=== PATIENT | male | born 1970 | race Two or more races ===

== ENCOUNTER 2018-03-02 22:29 | Emergency (ER) | payer SELFPAY ==
[~2018-03-02] VITALS: Ht 180.3 cm; Wt 99.8 kg
[2018-03-02 22:26] VITALS: BP 108/66
[~2018-03-02 22:29] MED LIST: DEPAKOTE250 MG PO
--- NOTE | 2018-03-02 22:37 | Emergency Room Report ---
History of Present Illness General Chief Complaint: Alcohol Intoxication Source: Patient, EMS Present Illness HPI Concerned bystanders called paramedics. The patient was in the gutter. He's been drinking alcohol. No seizure activity, head trauma. History of alcohol abuse. He's unable to ambulate. Paramedics transported him to us here. The patient's refusing to answer questions. The patient's been seen here in the past. Allergies: Coded Allergies: No Known Allergies (Unverified , 06/27/14) Patient History Limited by: medical condition Past Medical History: see triage record, old chart reviewed Social History: Reports: alcohol use Social History Narrative on streets Reviewed Nursing Documentation: PMH: Agreed; PSxH: Agreed Review of Systems All Other Systems: limited Physical Exam Vital Signs Date Time Temp Pulse Resp B/P (MAP) Pulse Ox O2 Delivery O2 Flow Rate FiO2 03/02/18 22:08 98.2 90 18 108/66 97 Room Air Sp02 EP Interpretation: reviewed, normal General Appearance: alert - slurred words, other - dishevelled Head: normocephalic, atraumatic Eyes: bilateral eye PERRL, bilateral eye Scleral Injection ENT: moist mucus membranes - poor dentition Neck: supple, no bony tend Respiratory: chest non-tender, lungs clear, normal breath sounds, rhonchi Cardiovascular #1: regular rate, rhythm Cardiovascular #2: 2+ radial (L) Gastrointestinal: non tender, soft, decreased bowel sounds Musculoskeletal: back normal, normal range of motion Neurologic: other - lethargic, nystagmus Psychiatric: other - argumentative or sleeping Skin: other - dishevelled Medical Decision Making Diagnostic Impression: Primary Impression: Acute alcoholic intoxication Qualified Codes: F10.929 - Alcohol use, unspecified with intoxication, unspecified Additional Impression: Poor impulse control ER Course Patient presents with inability to walk after drinking alcohol. Differential includes acute intoxication, other drug ingestion, occult infection amongst others. He has rhonchi at this time and a chest x-ray will be obtained. The patient be observed and reevaluated when he becomes more sober. If he still has difficulty walking at that time further workup will be undertaken. There is no evidence of any head trauma and is good strength in all extremities but he lacks coordination and is ataxic. CXR no infiltrates. Patient slept. Patient ate and ambulated without difficulty. When discussing discharge, patient stated he wanted to stay longer and eat more. Told he was stable for discharge. At that time he stated we could not discharge him because he was "suicidal". He had not plan. When it was pointed out that he was stable for discharge, he agreed to leave and denied SI. This patient is a chronic risk of self injury due to poor impulse control, limited coping skills, and judgment intermittently impaired by intoxication.~ I believe that the available clinical evidence to suggest that these characteristics derived primarily from personality disorder and are likely very stable over time.~ Hospitalization would likely attenuate risk of self-harm only during mcfp period, without lasting risk reduction.~ Serious self-harm , while possible, would likely be inadvertent, and because of impulsivity, and foreseeable.~ For these reasons, I do not believe hospitalization would provide meaningful reduction in risk of self-harm. Patient stable for outpatient observation and treatment. Chest X-Ray Diagnostic Results Chest X-Ray Diagnostic Results : Chest X-Ray Ordered: Yes # of Views/Limited/Complete: 1 View Indication: Other Interpretation: no consolidation, no effusion, no pneumothorax Impression: No acute disease Electronically Signed by: Sharad Umana MD Last Vital Signs Date Time Temp Pulse Resp B/P (MAP) Pulse Ox O2 Delivery O2 Flow Rate FiO2 03/03/18 06:59 98.0 78 16 115/75 99 Room Air Status: improved Disposition: HOME, SELF-CARE Condition: Improved Sharad Umana MD Mar 02, 2018 22:37
--- NOTE | 2018-03-02 23:08 | Diagnostic Imaging Report ---
EXAM: XR Chest, 1 View CLINICAL HISTORY: ALOC TECHNIQUE: Frontal view of the chest. COMPARISON: No relevant prior studies available. FINDINGS: Lungs: Unremarkable. No consolidation. Pleural space: Unremarkable. No pneumothorax. Heart: Unremarkable. No cardiomegaly. Mediastinum: Unremarkable. Bones/joints: Anterior left rib deformity appears chronic. IMPRESSION: No evidence of acute pulmonary disease.
[2018-03-03 00:30] VITALS: BP 108/66
[2018-03-03 03:25] VITALS: BP 115/75
[2018-03-03 04:55] VITALS: BP 115/75
[2018-03-03 06:29] VITALS: BP 115/75
[2018-03-03 06:59] VITALS: BP 115/75
== END 2018-03-03 07:00 | disposition home or self-care (01) ==
LOC: EDBD 22:29 → EMR 22:53
DX: F10.129 Alcohol abuse with intoxication, unspecified (principal); F63.9 Impulse disorder, unspecified
CPT/HCPCS: 71045; 99283

== ENCOUNTER 2019-02-02 18:57 | Emergency (ER) | payer MEDICAID, OTHER, SELFPAY ==
[~2019-02-02] VITALS: Ht 170.2 cm; Wt 68.0 kg
--- NOTE | 2019-02-02 19:10 | Emergency Room Report ---
History of Present Illness General Chief Complaint: To Be Triaged Source: Medical Record, EMS (Sharad Umana MD) Present Illness HPI Patient was brought in by EMS. They were called by [employer] because he was running around with scissors. People felt that he was threatening to harm himself although he denied this to paramedics. Patient is not answering questions about prior psychiatric history at the moment. He is verbally abusive and threatening to harm me if I do not let him go. Not responding to commands. Accu-Chek in the field was 274. Review of old records here revealed alcohol intoxication in the past and poor impulse control. Last seen March 02, 2018. At one point he alleged suicidal ideation but then denied this prior to discharge. (Sharad Umana MD) Allergies: Coded Allergies: No Known Allergies (Unverified , 06/27/14) Patient History Limited by: medical condition Past Medical History: see triage record, old chart reviewed Social History: Reports: alcohol use Social History Narrative He will not answer where he lives. Reviewed Nursing Documentation: PMH: Agreed; PSxH: Agreed (Sharad Umana MD) Nursing Documentation-PMH Past Medical History: No Stated History (Sharad Umana MD) Review of Systems All Other Systems: limited (Sharad Umana MD) Physical Exam Vital Signs Date Time Temp Pulse Resp B/P (MAP) Pulse Ox O2 Delivery O2 Flow Rate FiO2 02/02/19 18:50 98.4 77 20 126/86 (99) 98 Room Air Sp02 EP Interpretation: reviewed, normal General Appearance: non-toxic, mild distress - Agitated Head: normocephalic, atraumatic Eyes: bilateral eye PERRL, bilateral eye Scleral Injection ENT: moist mucus membranes Neck: full range of motion, supple Respiratory: lungs clear, normal breath sounds Cardiovascular #1: tachycardia Cardiovascular #2: 2+ radial (R) Gastrointestinal: normal inspection, normal bowel sounds, non tender, no mass, non-distended, scaphoid Musculoskeletal: back normal, normal range of motion Neurologic: motor strength/tone normal, DTRs symmetric, sensory intact, oriented - X1 Psychiatric: other - Agitated and not responding to attempts at de-escalation or commands Skin: other - Tattoos and almodovar (Sharad Umana MD) Procedures Critical Care Time Critical Care Time Total Critical Care Time: 30 min bedside evaluation and treatment excludes procedures (EKG). Reason for critical care: Psychosis, threat to staff, restraints and sedation Possible complications: hypotension, hypertension, ME, shock, arrhythmias, metabolic acidosis, end organ damage, respiratory failure. Interventions: Dimitri restraints, sedation, repeat evaluations Course: Patient presents with agitation and poor response to commands or attempts to de-escalate. Alleged alcohol ingestion. Old records reviewed. Patient requiring hard restraints. Sedation ordered. Reevaluated and patient still with intermittent agitation. Sedation repeated. No critical labs. Improved sedation and restraints ordered to be removed. Signed out to oncoming emergency physician. Repeat evaluation with improved sedation. Consultations: nursing staff, EMS, [employer] Performed by: Dr. Umana Tolerated well condition = serious (Sharad Umana MD) Medical Decision Making Medical: Other Behavioral: Other Reaction to Intervention: No change Restraint Reassesment I, Sharad Umana MD, have personally evaluated this patient. Laboratory tests have been reviewed and addressed accordingly. The patient is deemed to present a danger to themselves and/or others. This is based on the exam, history provided by EMS/[employer] and observed or reported behavior. Attempts for non-invasive measures have been considered and/or attempted, however, have been futile. It is in the best interest of the nursing staff, the patient, and others involved in this patient's care that behavioral restraints be applied. Patient evaluation reveals the following: Threatening staff and not responding to attempts at de-escalation. (Sharad Umana MD) Diagnostic Impression: Primary Impression: Substance abuse Additional Impressions: Psychosis, transient Alcohol intoxication Qualified Codes: F10.929 - Alcohol use, unspecified with intoxication, unspecified ER Course Patient presents with agitation and threats to harm others. Differential includes alcohol intoxication, exacerbation of schizoaffective disorder, poor impulse control, substance abuse amongst others. Patient not responding to attempts at de-escalation. Four-point hard restraints are ordered. In addition to that sedation has been ordered. The patient will be evaluated with EKG, chest x-ray and labs. The patient will receive IV hydration. EKG with normal sinus rhythm and prolonged QT. Patient is on a front desk monitor. Labs with normal CBC. CMP with mildly low potassium. CPK minimally elevated. Tox screen positive for amphetamines and benzodiazepines (obtained after Ativan given IM). Improved but still with intermittent agitation. Haldol again. 20:40 Patient with improved sedation but occasionally with episodes of erratic movement. Restraints removed. Tachycardia resolved. Patient signed out to Dr. Barreto for reevaluation. Laboratory Tests Test 02/02/19 20:15 White Blood Count 5.8 K/UL (4.8-10.8) Red Blood Count 4.06 M/UL (4.70-6.10) L Hemoglobin 13.2 G/DL (14.2-18.0) L Hematocrit 38.2 % (42.0-52.0) L Mean Corpuscular Volume 94 FL (80-99) Mean Corpuscular Hemoglobin 32.5 PG (27.0-31.0) H Mean Corpuscular Hemoglobin Concent 34.6 G/DL (32.0-36.0) Red Cell Distribution Width 10.4 % (11.6-14.8) L Platelet Count 215 K/UL (150-450) Mean Platelet Volume 6.2 FL (6.5-10.1) L Neutrophils (%) (Auto) 49.9 % (45.0-75.0) Lymphocytes (%) (Auto) 32.7 % (20.0-45.0) Monocytes (%) (Auto) 10.0 % (1.0-10.0) Eosinophils (%) (Auto) 4.2 % (0.0-3.0) H Basophils (%) (Auto) 3.2 % (0.0-2.0) H Urine Color Yellow Urine Appearance Clear Urine pH 5 (4.5-8.0) Urine Specific [place] 1.025 (1.005-1.035) Urine Protein 1+ (NEGATIVE) H Urine Glucose (UA) Negative (NEGATIVE) Urine Ketones 1+ (NEGATIVE) H Urine Blood Negative (NEGATIVE) Urine Nitrite Negative (NEGATIVE) Urine Bilirubin Negative (NEGATIVE) Urine Urobilinogen 12 MG/DL (0.0-1.0) H Urine Leukocyte Esterase 1+ (NEGATIVE) H Urine RBC 0-2 /HPF (0 - 0) H Urine WBC 0-2 /HPF (0 - 0) Urine Squamous Epithelial Cells Few /LPF (NONE/OCC) Urine Bacteria Few /HPF (NONE) Sodium Level 140 MMOL/L (136-145) Potassium Level 3.3 MMOL/L (3.5-5.1) L Chloride Level 105 MMOL/L (98-107) Carbon Dioxide Level 24 MMOL/L (21-32) Anion Gap 11 mmol/L (5-15) Blood Urea Nitrogen 16 mg/dL (7-18) Creatinine 0.8 MG/DL (0.55-1.30) Estimate Glomerular Filtration Rate > 60 mL/min (>60) Glucose Level 106 MG/DL (74-106) Calcium Level 8.3 MG/DL (8.5-10.1) L Total Bilirubin 0.8 MG/DL (0.2-1.0) Aspartate Amino Transferase (AST) 75 U/L (15-37) H Alanine Aminotransferase (ALT) 119 U/L (12-78) H Alkaline Phosphatase 79 U/L (46-116) Total Creatine Kinase 650 U/L (26-308) H Troponin I 0.000 ng/mL (0.000-0.056) Total Protein 7.9 G/DL (6.4-8.2) Albumin 3.3 G/DL (3.4-5.0) L Globulin 4.6 g/dL Albumin/Globulin Ratio 0.7 (1.0-2.7) L Salicylates Level 1.8 ug/mL (2.8-20) L Urine Opiates Screen Negative (NEGATIVE) Acetaminophen Level < 2 MCG/ML (10-30) L Urine Barbiturates Screen Negative (NEGATIVE) Phencyclidine (PCP) Screen Negative (NEGATIVE) Urine Amphetamines Screen Positive (NEGATIVE) H Urine Benzodiazepines Screen Positive (NEGATIVE) H Urine Cocaine Screen Negative (NEGATIVE) Urine Marijuana (THC) Screen Negative (NEGATIVE) Serum Alcohol 124 mg/dL (Sharad Umana MD) EKG Diagnostic Results Rate: normal Rhythm: NSR ST Segments: no acute changes - Was sinus rhythm with prolonged QT equals QTC of 525 (Sharad Umana MD) Rhythm Strip Diag. Results EP Interpretation: yes Rhythm: NSR, no PVC's, no ectopy (Sharad Umana MD) Chest X-Ray Diagnostic Results Chest X-Ray Diagnostic Results : Chest X-Ray Ordered: Yes # of Views/Limited/Complete: 1 View Indication: Other EP Interpretation: Yes Interpretation: no consolidation, no effusion, no pneumothorax Impression: No acute disease Electronically Signed by: Electronically signed by Sharad Umana MD (Sharad Umana MD) Last Vital Signs Date Time Temp Pulse Resp B/P (MAP) Pulse Ox O2 Delivery O2 Flow Rate FiO2 02/03/19 00:08 98.4 71 10 134/101 100 Room Air Status: improved (Sharad Umana MD) Reevaluation Time: 05:59 Reevaluation Impression I assumed care of the patient approximately 1130am from Dr. Umana. This is a 48-year-old male who came in intoxicated on amphetamines and alcohol with significant agitation requiring sedation. He was allowed to metabolize in the emergency department for a total time of 11 hours. He was awakened this morning and evaluated. Remains somnolent and groggy but is awake, eating a sandwich, was able to dress himself and is ambulating safely. Clinically, he is sober and appropriate for outpatient follow-up. I went over his labs again and counseled him on the dangers of methamphetamine and alcohol abuse. Also provided numbers and contact information for substance abuse of mental health facilities in the area. Patient will be discharged to follow-up as an outpatient both with the services and with several clinics that were also listed in his discharge paperwork. He was instructed to return to the emergency department any new or worsening symptoms. (Lamont Barreto MD) Disposition: HOME, SELF-CARE Condition: Improved Sharad Umana MD Feb 02, 2019 19:10 Lamont Barreto MD Feb 03, 2019 06:00
--- NOTE | 2019-02-02 19:12 | NUR ---
attempted EKG, patient uncooperative. ERMD notified.
[2019-02-02 19:15] VITALS: BP 126/86
[2019-02-02] MEDS ORDERED: DiphenhydrAMINE 50mg/ml Inj IM ONE (19:15)
[2019-02-02] MEDS ORDERED: LORazepam Inj 2mg/ml 1ml IM ONE (19:15)
[2019-02-02] MEDS ORDERED: Haloperidol 5mg/ml Inj IM ONE ×2 (19:15→20:45)
--- NOTE | 2019-02-02 19:15 | NUR ---
ED Nurse Note: Patient was brought in by ambulance, RA 67 due to behvioral complaints. Patient combative upon arrival and medicated accordingly. Will continue to monitor.
--- NOTE | 2019-02-02 20:19 | Diagnostic Imaging Report ---
EXAM: XR Chest, 1 View CLINICAL HISTORY: ALOC TECHNIQUE: Frontal view of the chest. COMPARISON: No relevant prior studies available. FINDINGS: Lungs: Unremarkable. No consolidation. Pleural space: Unremarkable. No pneumothorax. Heart: Unremarkable. No cardiomegaly. Mediastinum: Unremarkable. Bones joints: Unremarkable. IMPRESSION: No acute cardiopulmonary abnormality.
[2019-02-02 20:29] LABS: APPEARANCE,URINE CLEAR; BILIRUBIN, URINE NEGATIVE (NEGATIVE); GLUCOSE, URINE (UA) NEGATIVE (NEGATIVE); KETONES,URINE 1+ (NEGATIVE); LEUKOCYTE ESTERASE ,URINE 1+ (NEGATIVE); NITRITE,URINE NEGATIVE (NEGATIVE); PH,URINE 5 (4.5-8.0); PROTEIN,URINE 1+ (NEGATIVE); UROBILINOGEN,URINE 12 MG/DL (0.0-1.0)
[2019-02-02 20:32] LABS: BASOPHILS % (AUTO) 3.2 % (0.0-2.0); EOSINOPHILS % (AUTO) 4.2 % (0.0-3.0); HEMATOCRIT 38.2 % (42.0-52.0); HEMOGLOBIN 13.2 G/DL (14.2-18.0); LYMPHOCYTES % (AUTO) 32.7 % (20.0-45.0); MEAN CORPUSCULAR VOLUME 94 FL (80-99); NEUTROPHILS % (AUTO) 49.9 % (45.0-75.0); PLATELET COUNT 215 K/UL (150-450); RED BLOOD COUNT 4.06 M/UL (4.70-6.10); RED CELL DISTRIBUTION WIDTH 10.4 % (11.6-14.8); WHITE BLOOD COUNT 5.8 K/UL (4.8-10.8)
[2019-02-02 20:33] LABS: COLOR,URINE YELLOW
[2019-02-02 20:38] LABS: ANION GAP 11 mmol/L (5-15); BLOOD UREA NITROGEN 16 mg/dL (7-18); CALCIUM 8.3 MG/DL (8.5-10.1); CARBON DIOXIDE 24 MMOL/L (21-32); CHLORIDE 105 MMOL/L (98-107); CREATININE 0.8 MG/DL (0.55-1.30); POTASSIUM 3.3 MMOL/L (3.5-5.1); SODIUM 140 MMOL/L (136-145)
[2019-02-02 20:42] LABS: ALANINE AMINOTRANSFERASE 119 U/L (12-78); ALBUMIN 3.3 G/DL (3.4-5.0); ALBUMIN/GLOBULIN RATIO 0.7 (1.0-2.7); ALKALINE PHOSPHATASE 79 U/L (46-116); ASPARTATE AMINO TRANSFERASE 75 U/L (15-37); BILIRUBIN,TOTAL 0.8 MG/DL (0.2-1.0); CREATINE KINASE 650 U/L (26-308)
[2019-02-02 20:51] VITALS: BP 122/72
[2019-02-02 22:28] VITALS: BP 129/78
[2019-02-02 22:54] VITALS: BP 137/85
--- NOTE | 2019-02-02 23:17 | NUR ---
ED Nurse Note: Patient resting comfortably with no s/s of acute distress. Will continue to monitor.
[2019-02-03 00:08] VITALS: BP 134/101
--- NOTE | 2019-02-03 00:11 | NUR ---
ED Nurse Note: Patient resting comfortably without restraints, vital signs stable and documented. Patient provided with additional warm blankets. will continue to monitor.
--- NOTE | 2019-02-03 01:15 | NUR ---
ED Nurse Note: Patient is resting comfortably. I will continue to monitor.
--- NOTE | 2019-02-03 02:16 | NUR ---
ED Nurse Note: Patient is resting comfortably, with no s/s of acute distress.
--- NOTE | 2019-02-03 03:17 | NUR ---
ED Nurse Note: Patient is resting comfortably, has no complaints at this time, will continue to monitor.
--- NOTE | 2019-02-03 04:15 | NUR ---
ED Nurse Note: Patient is still sleeping soundly, with no s/s of acute distress.
--- NOTE | 2019-02-03 05:09 | NUR ---
ED Nurse Note: Patient responsive to stimulation, provided a sandwich an apple prior to impending discharge. Ken continue to monitor.
[2019-02-03] MEDS ORDERED: Ammonia Inhalant 0.33mL 1 Amp INH ONE ×2 (05:45→05:56)
--- NOTE | 2019-02-03 06:00 | NUR ---
ED Nurse Note: Patient cleared for discharge, arousable to ammonia salts but verbally abusive. Security contacted for discharge assistance.
[2019-02-03 06:11] VITALS: BP 134/101
--- NOTE | 2019-02-03 06:12 | NUR ---
ED Nurse Note: Patient departed with all belongings, a jacket was provided as patient requested to keep a blanket. Patient IV was removed, ID band removed, Patient departed with the help of security and the donor floor technician.
--- NOTE | 2019-02-05 14:18 | Cardiology Report ---
APPROVED REPORT EKG Measurement Heart [id number] Normal sinus rhythm Prolonged QT Abnormal ECG
== END 2019-02-03 06:11 | disposition home or self-care (01) ==
LOC: EDBD 18:57 → EMR 20:26
DX: F23 Brief psychotic disorder (principal); F10.929 Alcohol use, unspecified with intoxication, unspecified; F15.10 Other stimulant abuse, uncomplicated; F13.10 Sedative, hypnotic or anxiolytic abuse, uncomplicated; R45.1 Restlessness and agitation; Z78.1 Physical restraint status; R00.0 Tachycardia, unspecified; Y90.6 Blood alcohol level of 120-199 mg/100 ml
CPT/HCPCS: 36415; 71045; 80053; 80196; 80307; 80329; 81003; 82550; 82962; 84484; 85025; 93005; 96360; 96372; J1200; J1630; Z7502; 99291